=== PATIENT | male | born 1990 | race African-American/Black ===

== ENCOUNTER 2017-01-02 18:40 | Emergency (ER) | payer OTHER ==
[~2017-01-02] VITALS: Ht 188 cm; Wt 77.7 kg
[2017-01-02] MEDS ORDERED: KETOROLAC 30MG/ML VIAL IV ONE (22:15)
[2017-01-02] MEDS ORDERED: HYDROCODONE/APAP 7.5/325MG 1 TAB TABLET PO ONE (23:45)
[2017-01-03 01:15] VITALS: BP 140/85
== END 2017-01-03 01:35 | disposition home or self-care (01) ==
LOC: ER 21:36
DX: S39.012A Strain of muscle, fascia and tendon of lower back, initial encounter (principal); F20.9 Schizophrenia, unspecified; F12.10 Cannabis abuse, uncomplicated; F31.9 Bipolar disorder, unspecified; X58.XXXA Exposure to other specified factors, initial encounter; Y93.89 Activity, other specified; Y92.018 Other place in single-family (private) house as the place of occurrence of the external cause
CPT/HCPCS: 96374; 99284; J1885; Z7610

== ENCOUNTER 2017-01-07 00:14 | Emergency (ER) | payer OTHER ==
[~2017-01-07] VITALS: Ht 182.9 cm; Wt 79.0 kg
[2017-01-07] MEDS ORDERED: SODIUM CHLORIDE 0.9% 1,000 ML IV ONE (01:27)
[2017-01-07] MEDS ORDERED: ONDANSETRON HCL 4MG/2ML VIAL IV STA (01:27)
[2017-01-07 01:53] LABS: BASOPHILS % 0.5 % (0.0-2.0); EOSINOPHILS % 1.2 % (0.0-5.0); HEMATOCRIT. 39.2 % (42.0-52.0); HEMOGLOBIN. 13.5 g/dL (14.0-18.0); LYMPHOCYTES % 11.4 % (20.0-50.0); MEAN CORPUSCULAR HEMOGLOBIN 29.7 pg (28.0-32.0); MEAN CORPUSCULAR VOLUME 86.1 fL (80.0-94.0); MEAN PLATELET VOLUME 9.2 fl (7.4-10.4); MONOCYTES % 9.1 % (2.0-8.0); NEUTROPHILS % 77.8 % (40.0-76.0); PLATELET 160 x1000/uL (130-400); RED BLOOD CELL COUNT 4.55 mill/uL (4.7-6.1); RED CELL DISTRIBUTION WIDTH 14.1 % (11.6-14.6)
[2017-01-07 01:56] LABS: CHLORIDE 108 mEq/L (98-107)
[2017-01-07 02:05] LABS: CARBON DIOXIDE 29 mEq/L (21-32)
[2017-01-07 02:05] LABS: COLOR URINE YELLOW (YELLOW); GLUCOSE URINE NEGATIVE (NEGATIVE); KETONES URINE TRACE (NEGATIVE); LEUKOCYTE ESTERASE URINE NEGATIVE (NEGATIVE); NITRITE URINE NEGATIVE (NEGATIVE); OCCULT BLOOD URINE NEGATIVE (NEGATIVE); PH URINE 7.5 (4.5-8.0); PROTEIN URINE NEGATIVE (NEGATIVE); SPECIFIC GRAVITY URINE 1.024 (1.005-1.030)
[2017-01-07 02:07] LABS: CLARITY URINE HAZY (CLEAR)
[2017-01-07 04:36] VITALS: BP 122/79
== END 2017-01-07 06:31 | disposition home or self-care (01) ==
LOC: ER 00:41
DX: M60.9 Myositis, unspecified (principal); M79.1 Myalgia; R53.1 Weakness; R42 Dizziness and giddiness; F17.200 Nicotine dependence, unspecified, uncomplicated; F12.10 Cannabis abuse, uncomplicated
CPT/HCPCS: 36415; 80053; 81001; 83690; 85025; 96374; 99284; J2405; J7030; Z7610